=== PATIENT | female | born 1965 | race Caucasian/White ===

== ENCOUNTER 2017-11-10 21:50 | Emergency (ER) | payer OTHER ==
[~2017-11-10] VITALS: Ht 154.9 cm; Wt 62.6 kg
[2017-11-10] MEDS ORDERED: ASPIRIN325 PO (22:16)
[2017-11-10] MEDS ORDERED: IRON325 PO (22:17)
[2017-11-10] MEDS ORDERED: CENTRUM SILVER1 EAC4 PO (22:17)
[2017-11-10] MEDS ORDERED: TUMERIC PO (22:17)
[2017-11-10] MEDS ORDERED: ACEBUTOLOL HCL200 MG PO (22:18)
[2017-11-10] MEDS ORDERED: HYDROCODONE-AP1 EAC6 PO (23:49)
[2017-11-11 00:10] VITALS: BP 112/70
== END 2017-11-11 00:15 | disposition home or self-care (01) ==
LOC: ER 21:50
DX: S80.12XA Contusion of left lower leg, initial encounter (principal); Z88.1 Allergy status to other antibiotic agents; Z91.041 Radiographic dye allergy status; Z88.0 Allergy status to penicillin; Z88.2 Allergy status to sulfonamides; Z88.8 Allergy status to other drugs, medicaments and biological substances; W22.8XXA Striking against or struck by other objects, initial encounter; Y92.89 Other specified places as the place of occurrence of the external cause; Y93.89 Activity, other specified; Y99.8 Other external cause status